=== PATIENT | female | born 1985 | race Caucasian/White ===

== ENCOUNTER 2017-01-04 11:54 | Inpatient (IN) | payer OTHER ==
[2017-01-04] MEDS ORDERED: Oxytocin in LR* 20 UNITS/1,000 ML BAG IVPB SCH (13:00)
[2017-01-04 13:21] LABS: Hematocrit 34 % (35-47); Hemoglobin 11.5 g/dl (12.0-16.0); Mean Corpuscular HGB Conc 33 g/dl (31-36); Mean Corpuscular Hemoglobin 29 pg (27-31); Mean Corpuscular Volume 87 fL (80-97); Mean Platelet Volume 9 um3 (7.4-10.4); Red Blood Count 3.95 10^6/ul (4.0-5.4); Red Cell Distribution Width 13 % (10.5-15); White Blood Count 13.5 10^3/ul (3.5-10.8)
[2017-01-04] MEDS ORDERED: Lidocaine 1% MPF* 2 ML VIAL ONE (15:12)
[2017-01-04] MEDS ORDERED: ceFOXitin 2 GM IVPREMIX* 2 GM/50 ML BAG ONE (17:21)
[2017-01-04] MEDS ORDERED: Sodium Citrate/Citric Acid* 15 ML UDC ONE (17:21)
[2017-01-04] MEDS ORDERED: Sodium Citrate/Citric Acid* 15 ML UDC PO ONE (17:25)
[2017-01-04] MEDS ORDERED: ceFOXitin 2 GM IVPREMIX* 2 GM/50 ML BAG IVPB ONE (17:25)
[2017-01-04] MEDS ORDERED: Morphine PF AMP (0.5MG/ML)* 5 MG/10 ML AMP ONE (18:06)
[2017-01-04] MEDS ORDERED: EPHEDrine (Pressors)* 50 MG/ML VIAL ONE (18:37)
[2017-01-04] MEDS ORDERED: OXYTOCIN* 10 UNITS/ML 1 ML VIAL ONE ×2 (18:37→19:25)
[2017-01-04] MEDS ORDERED: diPHENhydraMINE IV* 50 MG/ML 1 ml VIAL (BENADRYL) IV PRN (18:42)
[2017-01-04] MEDS ORDERED: oxyCODONE/Acetamin 5/325 MG* TAB PO PRN (18:42)
[2017-01-04] MEDS ORDERED: Ibuprofen TAB* 800 MG PO PRN (18:42)
[2017-01-04] MEDS ORDERED: Naloxone* 0.4 MG/ML 1 ML VIAL IV PRN (18:42)
[2017-01-04] MEDS ORDERED: Ondansetron INJ* 2 MG/ML VIAL IV PRN (18:42)
[2017-01-04] MEDS ORDERED: Nalbuphine* 20 MG/ML 1 ML VIAL IV PRN (18:42)
[2017-01-04] MEDS ORDERED: Dibucaine 1% 28.35 GM TUBE PR PRN (19:24)
[2017-01-04] MEDS ORDERED: Glycerin ADULT SUPP PR PRN (19:24)
[2017-01-04] MEDS ORDERED: Acetaminophen TAB* 325 MG PO PRN (19:24)
[2017-01-04] MEDS ORDERED: Witch Hazel PAD* JAR TOPICAL PRN (19:24)
[2017-01-04] MEDS ORDERED: Ketorolac INJ* 30 MG/ML 1 ML VIAL IV PRN (21:21)
[2017-01-04] MEDS: Docusate CAP* 100 MG PO SCH (23:46)
[2017-01-04] MEDS: Simethicone TAB* 80 MG TAB.CHEW PO SCH (23:46)
[2017-01-04] MEDS: Ibuprofen TAB* 600 MG PO SCH (23:49)
[2017-01-05] MEDS: oxyCODONE/Acetamin 5/325 MG* TAB PO PRN ×6 (02:14→22:40)
[2017-01-05 07:01] LABS: Hematocrit 29 % (35-47); Hemoglobin 9.9 g/dl (12.0-16.0); Mean Corpuscular HGB Conc 34 g/dl (31-36); Mean Corpuscular Hemoglobin 29 pg (27-31); Mean Corpuscular Volume 87 fL (80-97); Mean Platelet Volume 9 um3 (7.4-10.4); Red Blood Count 3.38 10^6/ul (4.0-5.4); Red Cell Distribution Width 14 % (10.5-15); White Blood Count 13.3 10^3/ul (3.5-10.8)
[2017-01-05] MEDS: Simethicone TAB* 80 MG TAB.CHEW PO SCH ×4 (09:43→21:57)
[2017-01-05] MEDS: Ibuprofen TAB* 600 MG PO SCH ×2 (09:44→15:38)
[2017-01-05] MEDS: Docusate CAP* 100 MG PO SCH ×3 (09:45→21:57)
[2017-01-05] MEDS ORDERED: Zolpidem TAB* 5 MG PO PRN (10:30)
[2017-01-05] MEDS ORDERED: oxyCODONE/Acetamin 5/325 MG* TAB PO PRN (10:30)
[2017-01-05] MEDS: Ferrous Gluconate TAB* 324 MG TAB PO SCH ×2 (13:16→21:57)
[2017-01-05] MEDS: Ibuprofen TAB* 600 MG PO PRN (21:57)
--- NOTE | 2017-01-06 05:37 | OP ---
DATE OF OPERATION: 01/04/17 - ROOM #117 DATE OF : 83 SURGEON: Edwardo Garcia MD ASSISTANTS: Dr. Patsy Daily and Lina Stinson, certified marine mechanic. ANESTHESIOLOGIST: Jasmyn Jean Baptiste MD ANESTHESIA: Spinal. PRE-OP DIAGNOSES: Intrauterine at 38 weeks, maternal obesity, oligohydramnios, and category 2 tracing, remote from delivery. POST-OP DIAGNOSES: Intrauterine at 38 weeks, maternal obesity, oligohydramnios, and category 2 tracing, remote from delivery. OPERATIVE PROCEDURE: Primary low transverse section. ESTIMATED BLOOD LOSS: 700 cc. URINE OUTPUT: 400 cc. IV FLUIDS: She received 2700 cc of IV crystalloid fluid. FINDINGS: Delivery of a viable female infant with weight of 5 pounds 9 ounces with 's of 9 and 9. The placenta was sent to Pathology. The uterus, adnexa, bowel, and bladder were within normal limits. There were no complications. DESCRIPTION OF PROCEDURE: The patient was taken to the operating room, where she was identified. She was placed on the operating table, where a spinal anesthetic was obtained without difficulty. She was then placed in the supine position with a leftward tilt, prepped and draped in a normal sterile fashion. A Pfannenstiel skin incision was made with a knife and carried through to the underlying layer of fascia. The fascia was nicked in the midline and extended laterally with curved Puente scissors. The fascia was grasped superiorly inferiorly with Rahul clamps and dissected off sharply from the rectus muscle. The rectus muscle was in the midline bluntly. The peritoneum was identified, grasped with pickups, and entered sharply with Metzenbaum scissors. Once entry into the peritoneum was confirmed, an Palomo extra large retractor was introduced into the patient's incision into the abdominal cavity. After the placement of Palomo retractor, bladder flap was created using Metzenbaum scissors. A low transverse uterine incision was made with a knife, extended laterally with bandage scissors. The infant's head was then grasped and delivered atraumatically. The nose and mouth were suctioned at the incision site. The rest of the infant's body was then delivered. The cord was clamped and cut, and the was handed off to awaiting senior sales representative. Cord bloods were obtained. The placenta was removed manually. The uterus was then cleaned with moist laparotomy sponges in the intrauterine cavity. At this point, I proceeded to close the uterine cavity in situ with 0 Polysorb sutures initially in a running locked fashion and a second imbricating layer of 0 Polysorb sutures with good hemostasis noted. The gutters were cleaned of old clot and debris using moist laparotomy sponges. All the sponges were removed from the patient's abdomen. The Palomo retractor was also removed from the patient's abdomen. The peritoneum was grasped with Dai clamps. The peritoneum was then closed using 3-0 Polysorb suture in a running fashion. The fascia was closed using 0 Polysorb suture in a running fashion the subcutaneous layer, the Faye's fascia was closed using 3-0 Polysorb suture in interrupted stitches, and the skin was closed with a 4-0 Monocryl subcuticular stitch. The patient tolerated the procedure well. Sponge, lap, and needle counts were correct x2. She was then transferred to recovery room area in stable condition. CC: Dr. Patsy Daily, [facility]* [id number]/[facility] #: [id number] [facility]
[2017-01-06] MEDS: oxyCODONE/Acetamin 5/325 MG* TAB PO PRN ×2 (05:49→10:49)
[2017-01-06] MEDS: Ibuprofen TAB* 600 MG PO PRN (06:28)
[2017-01-06 07:48] VITALS: BP 117/72
[2017-01-06] MEDS: Ferrous Gluconate TAB* 324 MG TAB PO SCH (08:25)
[2017-01-06] MEDS: Docusate CAP* 100 MG PO SCH (08:26)
[2017-01-06] MEDS: Simethicone TAB* 80 MG TAB.CHEW PO SCH (08:27)
== END 2017-01-06 13:25 | disposition home or self-care (01) | DRG 540 ==
LOC: MCHOBOUT 11:54 → MCHOB 12:02
PROVIDERS: ADMIT Obstetrics & Gynecology; ATTEND Obstetrics & Gynecology
PROC: 3E033VJ Introduction of Other Hormone into Peripheral Vein, Percutaneous Approach (ICD-10-PCS; 2017-01-04)
PROC: 10907ZC Drainage of Amniotic Fluid, Therapeutic from Products of Conception, Via Natural or Artificial Opening (ICD-10-PCS; 2017-01-04)
PROC: 10D00Z1 Extraction of Products of Conception, Low, Open Approach (ICD-10-PCS; principal; 2017-01-04 18:09)
DX: O76 Abnormality in fetal heart rate and rhythm complicating labor and delivery (principal); O41.03X0 Oligohydramnios, third trimester, not applicable or unspecified; Z68.41 Body mass index [BMI] 40.0-44.9, adult; O99.214 Obesity complicating childbirth; E66.8 Other obesity; O99.334 Smoking (tobacco) complicating childbirth; F17.210 Nicotine dependence, cigarettes, uncomplicated; O99.344 Other mental disorders complicating childbirth; F41.8 Other specified anxiety disorders; F31.9 Bipolar disorder, unspecified; Z37.0 Single live birth; Z3A.38 38 weeks gestation of pregnancy; O90.81 Anemia of the puerperium; D64.9 Anemia, unspecified
CPT/HCPCS: 36415; 85025; 86850; 86900; 86901; 88307; A9270-GY; J0694; J1885; J2405; J2590

== ENCOUNTER 2017-05-01 11:53 | Emergency (ER) | payer OTHER ==
[2017-05-01 12:48] VITALS: BP 117/63
--- NOTE | 2017-05-01 12:53 | RAD ---
INDICATION: Left ankle pain COMPARISON: Left ankle October 08, 2015 TECHNIQUE: AP, lateral, and oblique views were obtained. FINDINGS: There are irregularities about the anterior tibia as well as the medial and lateral malleolar consistent with remote injuries. 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 There is mild lateral soft tissue swelling. IMPRESSION: EVIDENCE OF PRIOR ANKLE INJURY. TIBIOTALAR OSTEOARTHRITIS. NO ACUTE FINDINGS.
[2017-05-01] MEDS ORDERED: Ketorolac INJ* 60 MG/2 ML VIAL IM ONE (13:54)
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
== END 2017-05-01 14:14 | disposition home or self-care (01) ==
LOC: ED 11:53
DX: S93.402A Sprain of unspecified ligament of left ankle, initial encounter (principal); M79.1 Myalgia; F17.210 Nicotine dependence, cigarettes, uncomplicated; X50.9XXA Other and unspecified overexertion or strenuous movements or postures, initial encounter; Y93.9 Activity, unspecified; Y92.9 Unspecified place or not applicable; Y99.9 Unspecified external cause status
CPT/HCPCS: 96372; 99282; J1885

== ENCOUNTER 2017-05-06 19:28 | Emergency (ER) | payer OTHER ==
[2017-05-06] MEDS ORDERED: NS 0.9% 1000 ML* 1,000 ML IV ONE (20:16)
[2017-05-06 21:09] LABS: Urine Bilirubin Negative (Negative); Urine Glucose Negative (Negative); Urine Nitrite Negative (Negative)
[2017-05-06 21:27] LABS: Hematocrit 36 % (35-47); Hemoglobin 12.1 g/dl (12.0-16.0); Mean Corpuscular HGB Conc 34 g/dl (31-36); Mean Corpuscular Hemoglobin 29 pg (27-31); Mean Corpuscular Volume 85 fL (80-97); Mean Platelet Volume 8 um3 (7.4-10.4); Red Blood Count 4.16 10^6/ul (4.0-5.4); Red Cell Distribution Width 15 % (10.5-15); White Blood Count 12.3 10^3/ul (3.5-10.8)
[2017-05-06 21:39] LABS: ALT 20 U/L (7-52); AST 16 U/L (13-39); Albumin 3.6 g/dL (3.2-5.2); Alkaline Phosphatase 53 U/L (34-104); Anion Gap 3 mmol/L (2-11); BUN/Creatinine Ratio 15.6 (8-20); Blood Urea Nitrogen 12 mg/dL (6-24); C Reactive Protein 7.26 mg/L (< 5.00); CO2 Carbon Dioxide 27 mmol/L (22-32); Calcium 8.7 mg/dL (8.6-10.3); Chloride 108 mmol/L (101-111); Creatine Kinase 128 U/L (10-223); EGFR African American 111.7 (>60); EGFR Non-African American 86.9 (>60); Globulin 2.9 g/dL (2-4); Glucose 95 mg/dL (70-100); Lipase 23 U/L (11.0-82.0); Potassium 4.1 mmol/L (3.5-5.0); Sodium 138 mmol/L (133-145); Total Protein 6.5 g/dL (6.4-8.9)
[2017-05-06 21:54] LABS: TSH (Thyroid Stimulating Horm) 1.53 mcIU/mL (0.34-5.60)
[2017-05-06] MEDS ORDERED: Iohexol 300* (CONTRAST) 10 ML SDV IV ONE (22:56)
[2017-05-06] MEDS ORDERED: Ondansetron INJ* 2 MG/ML VIAL IV ONE (23:42)
[2017-05-06] MEDS ORDERED: Morphine INJ* 4 MG/ML 1 ML SYRINGE IV ONE (23:42)
[2017-05-07] MEDS ORDERED: Morphine INJ* 4 MG/ML 1 ML SYRINGE IV ONE (01:27)
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
[2017-05-07 02:59] VITALS: BP 106/65
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
== END 2017-05-07 02:58 | disposition home or self-care (01) ==
LOC: ED 19:28
DX: R10.9 Unspecified abdominal pain (principal); M51.24 Other intervertebral disc displacement, thoracic region; R11.0 Nausea; R53.1 Weakness; F17.210 Nicotine dependence, cigarettes, uncomplicated; Z04.1 Encounter for examination and observation following transport accident
CPT/HCPCS: 36415; 71260; 72125; 72128; 74177; 80053; 81003; 82270; 82550; 82553; 83605; 83690; 83735; 84443; 84702; 85025; 85610; 85730; 86140; 96374; 96375; 99283; J2270; J2405; Q9967

== ENCOUNTER 2017-06-13 17:34 | Emergency (ER) | payer SELFPAY ==
[2017-06-13 17:38] VITALS: BP 127/64
== END 2017-06-13 20:41 | disposition left against medical advice (07) ==
LOC: ED 17:34
DX: Z91.81 History of falling (principal); Z53.21 Procedure and treatment not carried out due to patient leaving prior to being seen by health care provider

== ENCOUNTER 2017-12-27 19:30 | Emergency (ER) | payer OTHER ==
[2017-12-27 19:40] VITALS: BP 116/73
--- NOTE | 2017-12-27 20:30 | RAD ---
INDICATION: Right hip pain COMPARISON: None TECHNIQUE: An AP view of the pelvis and AP views of the hip in neutral and abducted position were obtained FINDINGS: Bones: There are no acute bony findings. Joint spaces: The hips articulate normally. The joint spaces are preserved. SI joints/symphysis: The SI joints and symphysis are intact. Other: None IMPRESSION: NEGATIVE EXAMINATION.
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
[2017-12-27] MEDS ORDERED: Ketorolac INJ* 60 MG/2 ML VIAL IM ONE (21:35)
[2017-12-27] MEDS ORDERED: Orphenadrine Citrate IV* 30 MG/ML 2 ML VIAL IM ONE (21:35)
[2017-12-27 22:09] LABS: Urine Appearance Clear; Urine Blood Negative (Negative); Urine Color Yellow; Urine Ketones Trace (Negative); Urine Protein Negative (Negative); Urine Specific Gravity 1.019 (1.010-1.030); Urine Urobilinogen Negative (Negative)
== END 2017-12-27 23:07 | disposition home or self-care (01) ==
LOC: ED 19:30
DX: S76.011A Strain of muscle, fascia and tendon of right hip, initial encounter (principal); X58.XXXA Exposure to other specified factors, initial encounter; Y93.9 Activity, unspecified; Y92.9 Unspecified place or not applicable; M54.31 Sciatica, right side; E28.2 Polycystic ovarian syndrome; F41.9 Anxiety disorder, unspecified; F32.9 Major depressive disorder, single episode, unspecified; F17.210 Nicotine dependence, cigarettes, uncomplicated
CPT/HCPCS: 36415; 80307; 81003; 99282; J1885; J2360

== ENCOUNTER 2018-03-25 21:59 | Emergency (ER) | payer OTHER ==
[2018-03-25] MEDS ORDERED: diPHENhydraMINE PO* 25 MG PO ONE (22:37)
[2018-03-25] MEDS ORDERED: predniSONE TAB* 20 MG PO ONE (22:37)
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
[2018-03-25] MEDS ORDERED: Acyclovir* 400 MG TAB PO ONE (23:28)
[2018-03-26 00:13] VITALS: BP 127/83
== END 2018-03-26 00:15 | disposition home or self-care (01) ==
LOC: ED 21:59
DX: R21 Rash and other nonspecific skin eruption (principal); E28.2 Polycystic ovarian syndrome; Z88.8 Allergy status to other drugs, medicaments and biological substances; F41.9 Anxiety disorder, unspecified; F31.9 Bipolar disorder, unspecified; F17.210 Nicotine dependence, cigarettes, uncomplicated
CPT/HCPCS: 99282; A9270-GY; J7512

== ENCOUNTER 2018-04-09 09:58 | Emergency (ER) | payer OTHER ==
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
--- NOTE | 2018-04-09 12:40 | RAD ---
INDICATION: Atraumatic left ankle pain in a patient with a nonspecific history of left ankle surgery 8 years earlier ("a bone was shaved") COMPARISON: Similar radiograph dated May 01, 2017 TECHNIQUE: 3 views of the left ankle were obtained. FINDINGS: The visualized bones are well-corticated and appropriately aligned. 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 IMPRESSION: DEGENERATIVE CHANGES OF THE LEFT ANKLE SIMILAR IN APPEARANCE TO THE PREVIOUS RADIOGRAPH INCLUDING SCLEROTIC REMODELING OF THE SUPERIOR LATERAL ASPECT OF THE TALUS. If the patient's symptoms persist, follow-up imaging is recommended.
[2018-04-09 13:23] VITALS: BP 106/64
== END 2018-04-09 13:22 | disposition home or self-care (01) ==
LOC: ED 09:58
DX: M25.472 Effusion, left ankle (principal); M25.572 Pain in left ankle and joints of left foot; E28.2 Polycystic ovarian syndrome; F41.9 Anxiety disorder, unspecified; F32.9 Major depressive disorder, single episode, unspecified; Z88.8 Allergy status to other drugs, medicaments and biological substances; F17.210 Nicotine dependence, cigarettes, uncomplicated
CPT/HCPCS: 99282

== ENCOUNTER 2018-10-04 05:38 | Day surgery (SDC) | payer OTHER ==
[~2018-10-04 05:38] MED LIST: Buffered Lidocaine 0.9% SYRIN* 5 ML/SYR SYRINGE INTRADERM ONE
[2018-10-04] MEDS ORDERED: Sodium Citrate/Citric Acid* 15 ML UDC PO ONE (06:00)
[2018-10-04] MEDS ORDERED: Sodium Citrate/Citric Acid* 15 ML UDC ONE (06:25)
[2018-10-04] MEDS ORDERED: ceFAZolin 2 GM PREMIX in ORs 2 GM/50 ML BAG IVPB ONE (06:26)
[2018-10-04] MEDS ORDERED: ROPIVACAINE 5 MG/ML 30 ML BTL (0.5%) ONE (06:56)
[2018-10-04] MEDS ORDERED: fentaNYL* 50 MCG/ML 2 ML VIAL (100 MCG VIAL) ONE ×4 (06:56→10:55)
[2018-10-04] MEDS ORDERED: Propofol* 10 MG/ML 20 ML BTL ONE (06:56)
[2018-10-04] MEDS ORDERED: Midazolam* 1 MG/ML 2 ML VIAL (2 MG) ONE ×2 (06:57)
[2018-10-04] MEDS ORDERED: Bupivacaine 0.5% PF 10 ML VIAL INJ ONE ×2 (07:24→07:46)
[2018-10-04] MEDS ORDERED: Dexamethasone IV* 4 MG/ML 1 ML (4 MG) ONE (08:02)
[2018-10-04] MEDS ORDERED: Naloxone* 0.4 MG/ML 1 ML VIAL IV PRN (08:27)
[2018-10-04] MEDS ORDERED: DiMENhydriNATE IV* 50 MG/ML VIAL IV PUSH PRN (08:33)
[2018-10-04] MEDS ORDERED: Morphine PCA ADULT* 5 MG/ML 30 ML ONE (08:43)
[2018-10-04] MEDS ORDERED: Ondansetron INJ* 2 MG/ML VIAL ONE (09:06)
[2018-10-04] MEDS ORDERED: Ketorolac INJ* 30 MG/ML 1 ML VIAL ONE (09:06)
[2018-10-04] MEDS: fentaNYL* 50 MCG/ML 2 ML VIAL (100 MCG VIAL) IV PRN ×5 (09:47→10:56)
--- NOTE | 2018-10-04 10:05 | OP ---
Operative Report - Blank - Operative Report Date of Operation: 10/04/18 Note: PATIENT: Cee Sahu DATE OF : 1985 DATE OF SURGERY: 10/04/2018 SURGEON: Devang Gold MD PICKER PACKER: RACIEL Almanzar, whos assistance was necessary for positioning, retraction, help with instrumentation, and closure. ANESTHESIOLOGIST: Dr. Castanon PREOPERATIVE DIAGNOSIS: Left osteochondral lesion of the talus, ankle instability, peroneal tenosynovitis, anterior ankle impingement with distal tibia and dorsal talar osteophytes. POSTOPERATIVE DIAGNOSIS: Left osteochondral lesion of the talus, ankle instability, peroneal tenosynovitis, anterior ankle impingement with distal tibia and dorsal talar osteophytes. OPERATION: 1. Left tibial osteotomy 2. Left ankle open treatment of talar osteochondral lesion with autograft and allograft. 3. Saucerization of left distal tibia osteophytes 4. Saucerization of left dorsal talar osteophytes ANESTHESIA: GETA IMPLANTS: Two Arthrex 4.0mm cannulated screws. One Arthrex solid 4.5mm cancellous screw. One Arthrex mini fragment screw into the graft. TOURNIQUET TIME: Less than 2 hours with a well-padded thigh tourniquet at 250 mmHg SPECIMENS: none ESTIMATED BLOOD LOSS: minimal COMPLICATIONS: none STATUS: Stable from the operating room to the recovery room and then home. INDICATIONS FOR PROCEDURE: Cee has had long-standing left ankle problems with prior surgeries and extensive non-operative treatment. Both operative and non operative treatment alternatives were reviewed. Further, the nature and risks of surgery were reviewed in careful detail, in the office as well as the pre-operative holding area. Our discussions regarding the risks of surgery included, but were not limited to, infection, wound problems, nerve injury, neuroma, RSD, persistent symptoms, nonunion, malunion, failure of the graft, persistent instability, blood clot, arthritis, need for further surgery, failure of the surgery, and even the remote chance of catastrophic complication, including loss of limb. DESCRIPTION OF PROCEDURE: The patient was seen in the preoperative holding unit and informed written consent was obtained. The appropriate extremity was marked. The patient was then brought to the operating room and carefully positioned on the operating room table. Anesthesia was induced. All bony prominences were padded with great care. A well-padded thigh tourniquet was placed. A chlorhexidine based pre- scrub was performed followed by a chloraprep prep and drape in standard sterile fashion. A surgical safety pause was then conducted in which we confirmed the appropriate patient, extremity, planned procedure, availability of equipment, indication and administration of prophylactic antibiotics, and DVT prophylaxis in the form of a compression boot on the non-surgical extremity. An Esmarch exsanguination of the limb was then performed and the tourniquet inflated. A medial longitudinal incision was made over the medial malleolus and distal tibia. The entire medial malleolus was exposed in preparation for the osteotomy. Two guide pins were placed parallel to the tibiotalar joint, at the level of the physeal scar. Another guidepin was placed retrograde up the medial malleolus, parallel to the medial gutter. The depths of the guidewires were checked and then the guidewires were overdrilled for later placement of 4.0 mm cannulated screws. I then placed a guidewire obliquely to plan out the osteotomy. This was checked under fluoroscopy. I then used an oscillating saw to osteotomize the medial tibia to the level of the physeal scar. A large Lambotte osteotome was then placed into this osteotomy cut to complete the osteotomy into the tibiotalar joint. This made and an irregular osteochondral surface at the most distal portion of the osteotomy to later ease reduction of the osteotomy at the end of the case. The medial fragment of the osteotomy was windowed open, providing excellent visualization of the medial talus. The osteochondral lesion was easily identified. I used a 15 blade at the border between the diseased and normal cartilage to define the lesion for excision. I planned out my cuts for the excision of the osteochondral lesion. I then used a small oscillating saw blade to cut out a cuboid block, thus excising the osteochondral lesion. Cold irrigation was used during the saw cuts. I then removed the cuboid osteochondral fragment and measured it. Based on these measurements, I planned out my saw cuts on the talus allograft. I then cut out a cuboid osteochondral fragment from the allograft talus, slightly larger than the craig osteochondral fragment that was excised from the patient. Again, cold irrigation was used during the saw cuts. At this point, I obtained tibial autograft bone. I placed this autogenous bone graft into any irregularities at the interface where I would be fixating the allograft, thus providing a nice smooth recipient site surface. I then spent some time trimming the allograft cuboid fragment to fit precisely into the recipient site. Once I had an excellent fit, I placed a mini fragment screw to hold the graft in place. This was countersunk so as to be recessed beneath the chondral surface. I then exposed the anterior aspect of the distal tibia. There were large anterior osteophytes at the joint line. I used a rongeur to then excise these osteophytes, thus performing a saucerization of the anterior distal tibia. I then exposed the dorsal aspect of the talus. There were dorsal osteophytes just anterior to the articular cartilage. I used a rongeur to then excise these osteophytes, thus performing a saucerization of the dorsal talus. I then reduced the tibial osteotomy, and placed two partially threaded 4.0 mm cannulated screws at the physeal scar, which I had already drilled. The saw blade was placed into the oblique osteotomy during fixation of the osteotomy, so as to make sure I had an anatomic reduction. Finally, the fully threaded screw up the medial malleolus was placed. Final fluoroscopic images were obtained confirming excellent placement of the graft as well as anatomic reduction of the tibial osteotomy. The wound was then copiously irrigated. The retinaculum to the tarsal tunnel was then closed. The wounds were then closed in a layered fashion utilizing 3-0 Monocryl and 3-0 nylon. At this point, a sterile dressing was applied and the ankle was splinted in a neutral position. The patient was then awakened from anesthesia and transferred to the recovery room in stable condition. There were no complications. All needle and sponge counts were correct at the end of the case. ATTESTATION: I attest I was present and scrubbed and performed the critical portions of the procedure myself. POSTOPERATIVE PLAN: We will plan on performing the second part of her staged procedure in one week. In the meantime, she will rest and elevate the leg. She will be nonweightbearing.
[2018-10-04] MEDS ORDERED: oxyCODONE TAB* 5 MG TAB ONE (10:22)
[2018-10-04 11:47] VITALS: BP 103/61
== END 2018-10-04 12:08 | disposition home or self-care (01) ==
LOC: OR 05:38
PROVIDERS: ATTEND Orthopaedic Surgery
DX: M93.272 Osteochondritis dissecans, left ankle and joints of left foot (principal); M25.772 Osteophyte, left ankle; M76.72 Peroneal tendinitis, left leg; M25.372 Other instability, left ankle; Z72.0 Tobacco use; Z68.41 Body mass index [BMI] 40.0-44.9, adult
CPT/HCPCS: 76000; 81025; A9270-GY; C1713; C1776; J0690; J1100; J1885; J2250; J2270; J2405; J2704; J2795; J3010

== ENCOUNTER 2018-10-11 05:55 | Day surgery (SDC) | payer OTHER ==
[2018-10-11] MEDS ORDERED: ceFAZolin 2 GM PREMIX in ORs 2 GM/50 ML BAG IVPB ONE (07:04)
[2018-10-11] MEDS ORDERED: Bupivacaine 0.25% SDV PF* 10 ML VIAL INJ ONE ×2 (07:09→07:30)
[2018-10-11] MEDS ORDERED: fentaNYL* 50 MCG/ML 2 ML VIAL (100 MCG VIAL) ONE ×2 (07:31→08:14)
[2018-10-11] MEDS ORDERED: Midazolam* 1 MG/ML 2 ML VIAL (2 MG) ONE (07:31)
[2018-10-11] MEDS ORDERED: Ondansetron INJ* 2 MG/ML VIAL ONE (08:25)
[2018-10-11] MEDS ORDERED: Propofol* 10 MG/ML 20 ML BTL ONE (08:25)
[2018-10-11] MEDS ORDERED: Lidocaine 2% PF * 5 ML VIAL ONE (08:25)
[2018-10-11] MEDS ORDERED: Dexamethasone IV* 4 MG/ML 1 ML (4 MG) ONE (08:25)
[2018-10-11] MEDS ORDERED: Ibuprofen TAB* 600 MG PO PRN (08:33)
[2018-10-11] MEDS ORDERED: Acetaminophen TAB* 325 MG PO PRN (08:33)
[2018-10-11] MEDS ORDERED: oxyCODONE/Acetamin 5/325 MG* TAB PO PRN (08:33)
[2018-10-11] MEDS ORDERED: Mineral Oil Sterile, TOPICAL* 25 ML BTL ONE (08:42)
[2018-10-11] MEDS ORDERED: HYDROmorphone INJ1* 1 MG/ML SYRINGE ONE (10:21)
[2018-10-11] MEDS: HYDROmorphone INJ1* 1 MG/ML SYRINGE IV PRN ×5 (10:25→11:00)
--- NOTE | 2018-10-11 10:28 | OP ---
Operative Report - Blank - Operative Report Date of Operation: 10/11/18 Note: PATIENT: Cee Sahu DATE OF : 1985 DATE OF SURGERY: 10/11/2018 SURGEON: Devang Gold MD FILLER PICKER: RACIEL Almanzar, whos assistance was necessary for positioning, retraction, help with instrumentation, and closure. ANESTHESIOLOGIST: Jasmyn Jean Baptiste MD PREOPERATIVE DIAGNOSIS: Left ankle instability and peroneal tenosynovitis. Left calcaneal exostosis. POSTOPERATIVE DIAGNOSIS: Left ankle instability and peroneal tenosynovitis. Left calcaneal exostosis. OPERATION: 1. Left ankle lateral ligament reconstruction with allograft. 2. Left peroneal tendon exploration with peroneus longus and peroneus brevis tenolysis and excision of low-lying peroneus brevis muscle belly. 3. Left calcaneal saucerization with excision of an enlarged peroneal tubercle. ANESTHESIA: GETA IMPLANTS: Arthrex Bio-Tenodesis screws, suturetak x2. SemiT allograft tendon. TOURNIQUET TIME: Less than 2 hours with a well-padded thigh tourniquet at 250 mmHg SPECIMENS: none ESTIMATED BLOOD LOSS: minimal COMPLICATIONS: none STATUS: Stable from the operating room to the recovery room and then home. INDICATIONS FOR PROCEDURE: Cee has had longstanding left ankle pain and instability. She had stage 1 of her surgery last week and has been doing well postop. Both operative and non operative treatment alternatives were reviewed. Further, the nature and risks of surgery were reviewed in careful detail, in the office as well as the pre- operative holding area. Our discussions regarding the risks of surgery included , but were not limited to, infection, wound problems, nerve injury, neuroma, RSD , persistent symptoms, recurrent instability, blood clot, failure of the surgery , and even the remote chance of catastrophic complication, including loss of limb. DESCRIPTION OF PROCEDURE: The patient was seen in the preoperative holding unit and informed written consent was obtained. The appropriate extremity was marked. The patient was then brought to the operating room and carefully positioned on the operating room table. Anesthesia was induced. All bony prominences were padded with great care. A well-padded thigh tourniquet was placed. A chlorhexidine based pre- scrub was performed followed by a chloraprep prep and drape in standard sterile fashion. A surgical safety pause was then conducted in which we confirmed the appropriate patient, extremity, planned procedure, availability of equipment, indication and administration of prophylactic antibiotics, and DVT prophylaxis in the form of a compression boot on the non-surgical extremity. An Esmarch exsanguination of the limb was performed and the tourniquet inflated. I utilized an incision overlying the distal fibula laterally. I carried the dissection down through the soft tissue to the level of the periosteum and superior peroneal retinaculum (SPR) with care taken to protect the sural nerve, which was not visualized during the procedure. I carefully incised the SPR off of the posterior fibula to expose the peroneal tendons. Dissection of the tendons was carried distally. The tendons were explored at this time for any tears. No discrete tears were appreciated but there was a large amount of inflamed tenosynovium and a tenolysis was performed for both the peroneus brevis and peroneus longus tendons. Additionally, there was a low- lying peroneus brevis muscle belly which was debrided and excised. At this point, I carefully inspected the peroneal groove at the posterior aspect of the fibula. This was deemed to have adequate depth so the decision was made not to perform a groove deepening procedure. I then exposed the enlarged peroneal tubercle. I took down the gliding layer and then utilized a rongeur to remove this large tubercle, thus performing a saucerization of the calcaneus. I then used a rasp to smooth the bone. I then dissected anteriorly to expose the anterolateral ankle ligaments. There was marked thinning and elongation of the ATFL and CFL. As suspected, these were not of sufficient quality to perform a standard Brostrom-Rodríguez procedure alone. The ATFL and CFL were dissected off the distal fibula. The insertion of the ATFL onto the talus was visualized. I used a rongeur to roughen up the bone. I then placed 2 Arthrex suturetak anchors and sutured one end of the allograft tendon down to the talus. The tendon was held tightly against the talus. I then drove a Beath pin through the distal fibula from the insertion of the ATFL into the peroneal groove. This was then overdrilled. I then placed another Beath pin from the insertion of the CFL to the peroneal groove, exiting at the same spot as the prior drill hole. This was overdrilled as well. There was more than 1 cm between the drill holes on the anterior inferior aspect of the fibula. The drill tunnels formed a nice V shape in the distal fibula. The allograft tendon was then coated in sterile mineral oil and a suture passer was used to first pass it through the ATFL drill tunnel and then through the CFL drill tunnel. I then visualized the insertion of the CFL into the calcaneus. At this spot, a Beath pin was then driven into the calcaneus in an inferior and posterior direction. This was driven out of the medial calcaneus and then overdrilled to make a drill tunnel. The tendon was then placed into the tunnel and with the foot in a neutral position, a Bio-Tenodesis screw was placed into the calcaneal drill tunnel. This again had excellent purchase. There was latter-day of stability on anterior drawer and inversion testing. I then took the [place] ATFL tissue and sutured it to a periosteal flap on the distal fibula to reinforce the allograft reconstruction. After these repairs, the ankle and foot rested in an excellent position. I then carefully planned out the repair of the superior peroneal retinaculum. I reduced the peroneal tendons and they sat nicely in the retro-fibular groove. The wound was copiously irrigated. I repaired the SPR utilizing #1 Vicryl suture in a transosseous horizontal mattress suture pattern. I utilized multiple sutures for this repair, appropriately tensioning the SPR. I was able to pass a [place] under the repaired SPR without difficulty after the repair. I then took a couple fluoroscopic images to confirm that the osteotomy and allograft had not been disrupted, and they appeared to be in the same position as last week. We then irrigated the wound copiously again. The wound was closed in a layered fashion utilizing 3-0 Monocryl and 3-0 nylon. A sterile dressing was then applied and the ankle was splinted in a neutral position. All needle and sponge counts were correct at the end of the case. The patient was awakened from anesthesia and transferred to the recovery room in stable condition. There were no complications. ATTESTATION: I attest I was present and scrubbed and performed the critical portions of the procedure myself. POST-OPERATIVE PLAN: The patient will remain [id number] for an anticipated duration of 6 weeks. Follow up will be in 2 weeks for likely suture removal and transition into a short leg cast.
[2018-10-11] MEDS ORDERED: oxyCODONE/Acetamin 5/325 MG* TAB ONE (10:52)
[2018-10-11 11:59] VITALS: BP 143/90
== END 2018-10-11 12:00 | disposition home or self-care (01) ==
LOC: OR 05:55
PROVIDERS: ATTEND Orthopaedic Surgery
DX: M25.372 Other instability, left ankle (principal); M65.872 Other synovitis and tenosynovitis, left ankle and foot; M77.32 Calcaneal spur, left foot; M25.772 Osteophyte, left ankle; M93.272 Osteochondritis dissecans, left ankle and joints of left foot; M76.72 Peroneal tendinitis, left leg; E66.9 Obesity, unspecified; Z87.891 Personal history of nicotine dependence; G47.33 Obstructive sleep apnea (adult) (pediatric)
CPT/HCPCS: 81025; A9270-GY; C1713; C1776; J0690; J1100; J1170; J2250; J2405; J2704; J3010; J3490; L8699

== ENCOUNTER 2019-06-06 18:01 | Emergency (ER) | payer OTHER ==
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
[2019-06-06] MEDS ORDERED: Ibuprofen TAB* 600 MG PO ONE (22:16)
[2019-06-06 22:53] LABS: ABS Basophils 0.1 10^3/ul (0-0.2); ABS Eosinophils 0.2 10^3/ul (0-0.6); ABS Monocytes 0.6 10^3/ul (0-0.8); ABS Neutrophils 6.5 10^3/ul (1.5-7.7); Eosinophil % 2.2 %; Hematocrit 36 % (35-47); Hemoglobin 12.2 g/dL (12.0-16.0); Lymphocyte % 28.5 %; Mean Corpuscular HGB Conc 34 g/dL (31-36); Mean Corpuscular Hemoglobin 28 pg (27-31); Mean Corpuscular Volume 81 fL (80-97); Mean Platelet Volume 8.6 fL (7.4-10.4); Platelet Count 290 10^3/uL (150-450); Red Blood Count 4.43 10^6 /uL (3.70-4.87); Red Cell Distribution Width 15 % (10-15); White Blood Count 10.4 10^3/uL (3.5-10.8)
[2019-06-06 23:09] LABS: Albumin 4.4 g/dL (3.2-5.2); Albumin/Globulin Ratio 1.4 (1-3); BUN/Creatinine Ratio 17.1 (8-20); C Reactive Protein 19.58 mg/L (<8.01); Calcium 9.5 mg/dL (8.6-10.3); EGFR African American 96.6 (>60); EGFR Non-African American 79.8 (>60); Globulin 3.1 g/dL (2-4); Potassium 4.1 mmol/L (3.5-5.0); Total Bilirubin 0.4 mg/dL (0.2-1.0); Total Protein 7.5 g/dL (6.4-8.9)
[2019-06-06] MEDS ORDERED: Cephalexin CAP* 500 MG PO ONE (23:33)
[2019-06-07 00:04] VITALS: BP 104/69
== END 2019-06-07 00:08 | disposition home or self-care (01) ==
LOC: ED 18:01
DX: S93.402A Sprain of unspecified ligament of left ankle, initial encounter (principal); L03.116 Cellulitis of left lower limb; X58.XXXA Exposure to other specified factors, initial encounter; Y92.9 Unspecified place or not applicable; Z88.8 Allergy status to other drugs, medicaments and biological substances; Z87.891 Personal history of nicotine dependence
CPT/HCPCS: 36415; 80053; 83605; 85025; 86140; 99283; A9270-GY